=== PATIENT | male | born 1980 | race Two or more races ===

== ENCOUNTER 2023-01-04 16:54 | Emergency (ER) | payer SELFPAY ==
[~2023-01-04] VITALS: Ht 162.6 cm; Wt 90.9 kg
[2023-01-04] MEDS ORDERED: IBUP-45 PO (16:59)
[2023-01-04 17:01] VITALS: TEMP 97.6
[2023-01-04] MEDS ORDERED: 0.9% SODIUM CHLORIDE 10 ML SYRINGE IVP PRN (18:00)
[2023-01-04] MEDS ORDERED: SODIUM CHLORIDE 0.9% 2,750 ML IV ONE (18:00)
[2023-01-04] MEDS ORDERED: PIPERACILLIN SODIUM/TAZOBACTAM 4.5 GM in DEXTROSE 5%-WATER 100 ML IV ONE (18:00)
[2023-01-04] MEDS ORDERED: VANCOMYCIN HCL 1.25 GM in DEXTROSE 5%-WATER 250 ML IV ONE (18:00)
[2023-01-04] MEDS ORDERED: OFLOXACIN 0.3% 5 ML OTIC SOLUTION AU ONE (18:00)
[2023-01-04] MEDS ORDERED: SODIUM CHLORIDE 0.9% 100 ML ONE (18:13)
[2023-01-04] MEDS ORDERED: IOHEXOL 350 MG/ML 100 ML VIAL ONE (18:13)
[2023-01-04 18:30] LABS: BASOPHILS % (AUTO) 0.8 % (0.0-2.0); EOSINOPHILS % (AUTO) 2.3 % (1.0-6.0); HEMATOCRIT 41.6 % (41-53); HEMOGLOBIN 14.3 g/dL (13.5-17.5); LYMPHOCYTES # (AUTO) 2.5 K/uL (1.0-4.8); LYMPHOCYTES % (AUTO) 22.7 % (22.0-44.0); MEAN CORPUSCULAR HEMOGLOBIN 30.7 pg (26.0-34.0); MEAN CORPUSCULAR HGB CONC 34.4 G/dL (31.0-37.0); MEAN CORPUSCULAR VOLUME 89 fL (80-100); MONOCYTES # (AUTO) 1.2 K/uL (0.1-1.0); MONOCYTES % (AUTO) 11.1 % (2.0-9.0); NEUTROPHILS # (AUTO) 6.9 K/uL (1.8-7.7); NEUTROPHILS % (AUTO) 63.1 % (40.0-70.0); PLATELET COUNT (AUTO) 217 K/uL (150-450); RED BLOOD CELL COUNT(AUTO) 4.66 MIL/uL (4.50-5.90); RED CELL DISTRIBUTION WIDTH 13.4 % (11.5-14.5); WHITE BLOOD COUNT (AUTO) 10.9 K/uL (4.5-11.0)
[2023-01-04 18:57] LABS: LACTIC ACID 1.9 mmol/L (0.4-2.0)
[2023-01-04 19:01] LABS: ANION GAP 5 mmol/L (8-16); CALCIUM, TOTAL 8.6 mg/dL (8.8-10.5); CARBON DIOXIDE 29 mmol/L (22-29); CHLORIDE 102 mmol/L (98-107); CREATININE 0.98 mg/dL (0.60-1.30); GLOMERULAR FILTR. RATE CALC > 60 mL/min (>60); GLUCOSE,RANDOM 159 mg/dL (70-110); POTASSIUM 3.6 mmol/L (3.5-5.1); SODIUM SERUM 136 mmol/L (136-145); UREA NITROGEN, BLOOD 11 mg/dL (7-18)
[2023-01-04 19:24] LABS: ALANINE AMINOTRANSFERASE 47 U/L (12-78); ALBUMIN 3.9 g/dL (3.4-5.0); ALKALINE PHOSPHATASE 103 U/L (46-116); ASPARTATE AMINOTRANSFERASE 25 U/L (15-37); BILIRUBIN,TOTAL 0.2 mg/dL (0.1-1.0); CREATINE KINASE, TOTAL ONLY 149 U/L (39-308); TOTAL PROTEIN, SERUM 8.2 g/dL (6.4-8.2)
[2023-01-04 19:45] LABS: COVID AG,FIA SOURCE NASAL SWAB
[2023-01-04 19:54] LABS: SARS-COV2 (COVID) ANTIGEN,FIA Negative (Negative)
[2023-01-04] MEDS ORDERED: HYDROCODONE/ACETAMINOPHEN 5-325 MG TABLET PO ONE (23:45)
[2023-01-04] MEDS ORDERED: KETOROLAC TROMETHAMINE 30 MG/ML VIAL IVP ONE (23:45)
[2023-01-05] MEDS ORDERED: FentaNYL CITRATE PF 100 MCG/2 ML VIAL IVP ONE (06:00)
[2023-01-05 07:05] VITALS: BP 126/81; PULSE 65; RESP 16
== END 2023-01-05 08:29 | disposition short-term general hospital (02) ==
LOC: EMS 16:55
DX: H60.21 Malignant otitis externa, right ear (principal); H70.001 Acute mastoiditis without complications, right ear; Z20.822 Contact with and (suspected) exposure to COVID-19
CPT/HCPCS: 99285; 96365; 70487; 96367; 96375 ×2; 87426; 80053; 82550; 83605; 85025; 87040; 36415; 84145; J1885; J2543; J3370; Q9967; J7060 ×2; J7030; J7050; J3010